=== PATIENT | male | born 1990 | race Caucasian/White ===

== ENCOUNTER 2025-09-02 04:12 | Emergency (ER) | payer OTHER ==
[2025-09-02 04:45] LABS: #Basophils 0.1 thou/uL (0.0-0.2); #Eosinophils 0.3 thou/uL (0.0-0.7); #Lymphocytes 2.2 thou/uL (1.20-3.40); #Monocytes 0.8 thou/uL (0.11-0.59); #Neutrophils 4.8 thou/uL (1.40-6.50); %Basophils 1.3 % (0.0-1.0); %Eosinophils 3.2 % (0.0-10.0); %Lymphocytes 27.1 % (21.0-51.0); %Monocytes 9.6 % (0.0-10.0); %Neutrophils 58.8 % (42.0-75.0); Hematocrit 48.8 % (42.0-52.0); Hemoglobin 16.2 g/dL (14.0-18.0); Mean Corpuscular Hemoglobin 30.0 pg (27.0-31.0); Mean Corpuscular Volume 90.3 fl (78.0-98.0); Platelet Count 362 10x3/uL (130-400); Red Blood Cell (RBC) Count 5.40 mill/uL (4.70-6.10); White Blood Cell (WBC) Count 8.2 10x3/uL (4.8-10.8)
[2025-09-02 04:50] LABS: INR-International Normal Ratio 1.0; Prothrombin Time 13.7 sec (12.0-14.7)
[2025-09-02 04:51] LABS: PTT 29.1 sec (22.9-36.1)
[2025-09-02] MEDS ORDERED: Boostrix 0.5 ML (Tdap) VIAL (>/=7 yrs of age) ONE (04:56)
[2025-09-02 04:58] LABS: Troponin I 0.010 ng/mL (< 0.028)
[2025-09-02 04:59] LABS: ALT (SGPT) 15 U/L (Less than 45); AST (SGOT) 21 U/L (11-34); Albumin 4.7 g/dL (3.1-4.5); Alkaline Phosphatase 58 U/L (40-110); Anion Gap 19 mmol/L (10-20); BUN (Urea Nitrogen) 22 mg/dL (8.9-20.6); Bilirubin, Total 0.5 mg/dL (0.3-1.2); Calc. Creatinine Clearance 0 mL/min (70-130); Calcium 9.3 mg/dL (7.8-10.44); Carbon Dioxide 18 mmol/L (22-29); Chloride 105 mmol/L (98-107); Globulin 2.8 g/dL (2.4-3.5); Glucose 117 mg/dL (70-105); Lipase 38 U/L (8-78); Potassium 4.0 mmol/L (3.5-5.1); Sodium 138 mmol/L (136-145)
[2025-09-02] MEDS ORDERED: Ketorolac Tromethamine 30 MG (1 mL) VIAL ONE (05:26)
[2025-09-02] MEDS ORDERED: Acetaminophen 500 MG TAB ONE (05:26)
[2025-09-02] MEDS ORDERED: Lidocaine 1% (PF) 30 ML VIAL ONE (05:31)
[2025-09-02] MEDS ORDERED: HYDROcodone/Acetaminophen 10/325 mg Tablet ONE (07:15)
[2025-09-02] MEDS ORDERED: Iopamidol 370 76% 100 ML VIAL ONE (09:00)
== END 2025-09-02 07:43 | disposition home or self-care (01) ==
LOC: MADERS 04:12
DX: S22.42XA Multiple fractures of ribs, left side, initial encounter for closed fracture (principal); S61.412A Laceration without foreign body of left hand, initial encounter; S50.312A Abrasion of left elbow, initial encounter; S50.352A Superficial foreign body of left elbow, initial encounter; F17.210 Nicotine dependence, cigarettes, uncomplicated; F17.220 Nicotine dependence, chewing tobacco, uncomplicated; V69.49XA Driver of heavy transport vehicle injured in collision with other motor vehicles in traffic accident, initial encounter
CPT/HCPCS: 12001; 36415; 70450; 71260; 72125; 74177; 80053; 80307; 83690; 84484; 85025; 85610; 85730; 86850; 86900; 86901; 90471; 90715; 93005; 94760; 94799; 96374; 96375; 96376; G0390; J1885; J3010; J7030; Q9967